=== PATIENT | female | born 1995 | race Caucasian/White ===

== ENCOUNTER 2017-02-21 09:11 | Inpatient (IN) | payer MEDICAID ==
[~2017-02-21] VITALS: Ht 157.5 cm; Wt 93.7 kg
[~2017-02-21 09:11] MED LIST: FLEXERIL10 MG PO; GYNE-LOTRIMIN-745 GM VG; HYDROCODONE-APA1 TA1 PO; K-DUR 2020 MEQ PO; LABETALOL 100M100 MG FT; MAG-OX 400MG T400 MG PO; NOMEDS; PEPCID20 MG OR; PRENATAL PLUS1 TA1 PO; PROVENTIL0.09 MG/A1 IH; RANITIDINE 150150 MG PO; ZITHROMAX Z PA250 MG PO
[2017-02-21 09:28] VITALS: BP 123/71
[2017-02-21 09:48] LABS: URINE BILIRUBIN - DIPSTICK NEGATIVE (NEG); URINE BLOOD TRACE-LYSED (NEG)
[2017-02-21 11:07] LABS: LYMPH # 1.7 K/mm3 (0.7-4.5); LYMPH % 20.4 % (10-50.0)
[2017-02-21 11:08] LABS: HEMOGLOBIN 11.6 g/dL (12.2-16.2)
[2017-02-21 11:23] LABS: ABO BLOOD TYPE O; RH BLOOD TYPE POSITIVE
--- NOTE | 2017-02-21 11:58 | LABOR NOTE ---
Laboring Subjective Subjective Date 02/21/17 Time 1156 Subjective: Pt is having regular contractions Laboring Objective Objective NST: Reactive Contractions: q 2-3 minutes Cervical dilation: 1 Effacement: 50% Station: -3 Membranes are: Spontaneously Ruptured (with clear fluid) Fetus monitoring? Yes Type: External Laboring Assessment Assessment Progressing? No Cephalopelvic disproportion? Yes Problem List: 1. Laboring Plan Plan Anethesia for epidural? No Continue to labor down? Yes Plan for ? No Continue to monitor? Yes Start pushing? No Comment: no progress yet , head high. will continue to observe for now at 1158
--- NOTE | 2017-02-21 16:26 | LABOR NOTE ---
Laboring Subjective Subjective Date 02/21/17 Time 1629 Subjective: Pt is having regular contractions Laboring Objective Objective NST: Reactive Contractions: q 2-3 minutes Cervical dilation: 1 Effacement: 50% Station: -3 Membranes are: Spontaneously Ruptured Fetus monitoring? Yes Type: External Laboring Assessment Assessment Progressing? No Cephalopelvic disproportion? Yes Problem List: 1. Fetopelvic disproportion 2. Delivered by section Laboring Plan Plan Anethesia for epidural? No Continue to labor down? No Plan for ? Yes Continue to monitor? Yes Start pushing? No Comment: She has not made any progression all day. She is had regular contractions on oxytocin and has not change her cervix. The head has not descended. We will go ahead with a . I discussed the risks of surgery with the patient and her family that includes bleeding, infection, injuries to the bowel and bladder. We discussed the rare risk of DVT. All questions were answered and consents were signed. at [id number]
--- NOTE | 2017-02-21 16:26 | LABOR NOTE ---
Laboring Subjective Subjective Date 02/21/17 Time 162 Subjective: Pt is having regular contractions Laboring Objective Objective NST: Reactive Contractions: q 2-3 minutes Cervical dilation: 1 Effacement: 50% Station: -3 Membranes are: Spontaneously Ruptured Fetus monitoring? Yes Type: External Laboring Assessment Assessment Progressing? No Cephalopelvic disproportion? Yes Problem List: 1. Fetopelvic disproportion 2. Delivered by section Laboring Plan Plan Anethesia for epidural? No Continue to labor down? No Plan for ? Yes Continue to monitor? Yes Start pushing? No Comment: She has not made any progression all day. She is had regular contractions on oxytocin and has not change her cervix. The head has not descended. We will go ahead with a . I discussed the risks of surgery with the patient and her family that includes bleeding, infection, injuries to the bowel and bladder. We discussed the rare risk of DVT. All questions were answered and consents were signed. at [phone]
--- NOTE | 2017-02-21 17:43 | Operative Note ---
Procedure/Operative Record Procedure Date of procedure: 02/21/17 Pre-Op Dx: Term , spontaneous rupture of membranes, pelvic disproportion Post-Op Dx: Term , spontaneous rupture of membranes, pelvic disproportion, 3 cm LEFT paratubal cyst Procedure performed: Primary lower segment transverse section, LEFT tubal cystectomy Surgeon: Dr. Sean Priest Disease Management Nurse(s): Dr. Eckert Anesthesia: Clive Feeback EBL (ml): 600 Clinical note: She is a 21-year-old 1 now para 0 who was 39 and 6 weeks gestational age. She ruptured her membranes at home this morning and came in to labor and delivery. She was started on IV oxytocin was having regular contractions all day. She did not progress beyond 1 cm. The baby's head was still very high. After having discussed the risk and benefits we elected to perform a primary lower segment transverse section for fetopelvic disproportion. Operative findings: She delivered a live-born male child at 5:06 PM on the evening of February 21, 2017. The baby had Apgars of 7 at 1 minute and 8 at 5 minutes. PH is currently pending. She also had a 3 cm LEFT paratubal cyst. Operative note: She was taken to the operating room where spinal anesthesia was found be adequate. She was prepped and draped in normal sterile fashion in the supine position with a leftward tilt. A Quiros catheter was in the bladder. A Pfannenstiel skin incision was made with knife then carried through to the underlying layer of fascia with cautery. The fascia was opened in the midline with cautery and extended laterally using Espinoza scissors. [place] clamps were applied to the superior aspect of the fascial incision which was tented up and the underlying rectus muscles dissected off using cautery. The Radha clamps were then applied to the inferior aspect of the fascial incision which in a similar fashion was tented up and the underlying rectus muscles dissected off using cautery. The rectus muscles were then in the midline, the peritoneum identified, and entered sharply with Metzenbaum scissors. This incision was then extended superiorly and inferiorly with cautery. We had good visualization of the bladder inferiorly. The bladder peritoneum was then opened in the midline and extended laterally using Metzenbaum scissors. A bladder flap was created digitally. The lower blade of the Moises was inserted so as to push the bladder out of the way. Transverse incision was made through the uterine muscle to the amnion. This incision was then extended laterally using fingers traction. The amnion was entered sharply with knife. Clear fluid was seen to flow. The infant's head was then delivered atraumatically. This was followed by the anterior shoulder and the rest of the 's body atraumatically. The oropharynx and nasopharynx were bulb suctioned. The was then handed off to Dr. Plasencia who assigned Apgars of 7 at 1 minute and 8 at 5 minutes. We then obtained cord blood as well as cord pH. PH is currently pending Using gentle traction on the cord and countertraction on the fundus I was able to easily deliver the placenta intact. It had a normal three-vessel cord. The uterus was then cleared of clots and debris and exteriorized from the abdominal cavity. A sponge forcep was passed through the cervix to allow drainage. The uterine incision was then closed using running 0 Vicryl suture in a locked fashion. A second layer of the same suture was used to imbricate the first layer. The bladder peritoneum was then closed using running 2-0 Vicryl suture in a locked fashion. I noticed that there was a 3 cm LEFT paratubal cyst. It was just before the fimbriated end. I grasped the cyst and using cautery opened up the tissue overlying the cyst. I then was able to grasp the cyst and teased out from within the tissue. I removed it in its entirety. I then used Spot cautery to obtain excellent hemostasis. The gutters and cul-de-sac were then cleared of clots and debris and the uterus was returned the abdominal cavity. Once again hemostasis was assured. I elected to place a large piece of intercede around the distal end of the LEFT tube. The peritoneum was grasped with Cora clamps and closed using running 2-0 Vicryl suture. The rectus muscles were then reapproximated using running 0 Vicryl suture. The fascia was closed using running #1 Vicryl suture. The subcutaneous tissues were then irrigated with warm water followed by closure Olga's fascia using running 2-0 Monocryl suture. The skin was closed with devaughn. I then cleaned the skin with Hibiclens and Sterile dressings were applied. She tolerated the procedure well and was taken to the recovery room in excellent condition. All sponges minute and needle counts were correct. Estimate a blood loss was approximately 600 mL. Conplications: None Specimens: Products of conception, LEFT paratubal cyst at 1319
[2017-02-21 19:33] LABS: URINE BILIRUBIN - DIPSTICK NEGATIVE (NEG); URINE BLOOD NEGATIVE (NEG)
[2017-02-21 20:05] VITALS: BP 114/69
[2017-02-22 07:04] LABS: HEMOGLOBIN 11.5 g/dL (12.2-16.2)
[2017-02-22 08:25] VITALS: BP 113/56
--- NOTE | 2017-02-22 08:37 | ACUTE CARE PROGRESS NOTE (QUA) ---
Progress Notes Subjective Date 02/22/17 Time 0835 Note She is doing well this morning. She is eating and drinking and ambulating. Her lochia is normal. Her pain is reasonably well-controlled. She is bottlefeeding. Patient/family reports: feeling better, no complaints Objective Findings Last VS-Temp:98.0 B/P:114/69 Pulse:72 Resp:16 SaO2:98 ROOM AIR Last weight lbs:206 oz:10 K.725 Method:Floor Scales Laboratory Tests 02/22/17 0620: Hgb 11.5 L, Hct 35.1 L 02/21/17 1717: Cord Blood pH 7.34 L 02/21/17 1655: Urine Color YELLOW, Urine Appearance CLEAR, Urine pH 5.5, Ur Specific [place] 1.015, Urine Protein NEGATIVE, Urine Ketones NEGATIVE, Urine Blood NEGATIVE, Urine Nitrate NEGATIVE, Urine Bilirubin NEGATIVE, Urine Urobilinogen 0.2, Ur Leukocyte Esterase NEGATIVE, Urine WBC OCC, Urine Bacteria 1+, Urine Mucus 1+, Urine Glucose NEGATIVE 02/21/17 1038: MCH 27.3 02/21/17 1038: WBC 8.5, RBC 4.28, Hgb 11.6 L, Hct 35.7 L, MCV 83.4, RDW 13.0, Plt Count 267, MPV 6.9 L, Gran % 72.1, Gran # 6.1, Lymphocytes % 20.4, Monocytes % 5.9, Eosinophils % 1.3, Basophils % 0.2, Lymphocytes # 1.7, Monocytes # 0.5, Eosinophils # 0.1, Basophils # 0.0, PUBS MCHC 32.7, Antibody Screen NEGATIVE, Miscellaneous Test POSITIVE 02/21/17 0930: Membrane Rupture POSITIVE- RUPTURED 02/21/17 0918: Urine Color YELLOW, Urine Appearance CLOUDY, Urine pH 6.0, Ur Specific [place] 1.025, Urine Protein NEGATIVE, Urine Ketones NEGATIVE, Urine Blood TRACE-LYSED, Urine Nitrate NEGATIVE, Urine Bilirubin NEGATIVE, Urine Urobilinogen 0.2, Ur Leukocyte Esterase TRACE H, Urine WBC 3-5, Ur Squamous Epith Cells 5-10, Urine Bacteria 2+, Urine Mucus 2+, Urine Glucose NEGATIVE Microbiology 02/21 918 URINE CC: Urine Culture - RECD Exam General appearance: normal appearance, alert, awake, no acute distress Reviewed: vital signs, lab results Assessment/Plan Problem List 1. Fetopelvic disproportion 2. Delivered by section Patient condition Improving, Stable Plan: continue current care, initiate discharge plan This inpt stay is expected to cross 2 MNs from start of care Yes Comments: She is doing very well and we will plan to send her home in 48 hours. at 0836
[2017-02-23 08:29] VITALS: BP 113/56
--- NOTE | 2017-02-23 09:52 | ACUTE CARE PROGRESS NOTE (QUA) ---
Progress Notes Subjective Date 02/23/17 Time 0951 Note She is doing very well. She is eating and drinking and ambulating. She is bottlefeeding. Her lochia is normal. Her pain is well-controlled. Patient/family reports: feeling worse, no complaints Objective Findings Last VS-Temp:97.9 B/P:113/56 Pulse:65 Resp:18 SaO2:98 ROOM AIR Last weight lbs:206 oz:10 K.725 Method:Floor Scales Exam General appearance: normal appearance, alert, awake, no acute distress Reviewed: vital signs, lab results Assessment/Plan Problem List 1. Fetopelvic disproportion 2. Delivered by section Patient condition Improving, Stable Plan: continue current care This inpt stay is expected to cross 2 MNs from start of care Yes Comments: She is doing very well and we'll plan to send her home tomorrow. at 0912
[2017-02-23 19:20] VITALS: BP 130/65
--- NOTE | 2017-02-24 10:33 | ACUTE CARE PROGRESS NOTE (QUA) ---
Progress Notes Subjective Date 02/24/17 Time 1031 Note She is doing very well this morning. She is eating and drinking and ambulating. She is feeding. Her lochia is normal. Her pain is well-controlled. Patient/family reports: feeling better, no complaints Objective Findings Last VS-Temp:97.9 B/P:130/65 Pulse:91 Resp:18 SaO2:98 ROOM AIR Last weight lbs:206 oz:10 K.725 Method:Floor Scales Exam General appearance: normal appearance, alert, awake, no acute distress Reviewed: vital signs, lab results Assessment/Plan Problem List 1. Fetopelvic disproportion 2. Delivered by section Patient condition Improving, Stable Plan: continue current care, initiate discharge plan This inpt stay is expected to cross 2 MNs from start of care Yes Comments: She is doing very well we'll plan to send her home today. at 1032
--- NOTE | 2017-02-24 10:35 | Discharge Summary ---
Discharge Summary Admission date: 02/21/17 Discharge date: 02/24/17 Discharge diagnoses: Term , spontaneous rupture of membranes, pelvic disproportion Clinical note: She is a 21-year-old 19 now para 1 who was 39 and 6 weeks gestational age. She came in with ruptured membranes. Course in hospital: She really failed to progress beyond 1 cm. The baby's head was still quite high. This was despite having regular contractions all day long. As result of that we elected to perform a primary lower segment transverse section. She delivered a live-born male child at at 5:06 PM on the evening of February 21, 2017. The baby weighed 7 lbs. 8 oz. was 21 inches long and had Apgars of 7 at 1 minute and 8 at 5 minutes. She has done well postoperatively and has remained afebrile throughout her hospitalization. She is eating and drinking and ambulating. She is bottlefeeding. Her lochia is normal. She has O positive blood, she is rubella immune and was group B streptococcus negative. Laboratory Tests 02/22/17 0620: Hgb 11.5 L, Hct 35.1 L 02/21/17 1717: Cord Blood pH 7.34 L 02/21/17 1655: Urine Color YELLOW, Urine Appearance CLEAR, Urine pH 5.5, Ur Specific [place] 1.015, Urine Protein NEGATIVE, Urine Ketones NEGATIVE, Urine Blood NEGATIVE, Urine Nitrate NEGATIVE, Urine Bilirubin NEGATIVE, Urine Urobilinogen 0.2, Ur Leukocyte Esterase NEGATIVE, Urine WBC OCC, Urine Bacteria 1+, Urine Mucus 1+, Urine Glucose NEGATIVE 02/21/17 1038: MCH 27.3 02/21/17 1038: WBC 8.5, RBC 4.28, Hgb 11.6 L, Hct 35.7 L, MCV 83.4, RDW 13.0, Plt Count 267, MPV 6.9 L, Gran % 72.1, Gran # 6.1, Lymphocytes % 20.4, Monocytes % 5.9, Eosinophils % 1.3, Basophils % 0.2, Lymphocytes # 1.7, Monocytes # 0.5, Eosinophils # 0.1, Basophils # 0.0, PUBS MCHC 32.7, Antibody Screen NEGATIVE, Miscellaneous Test POSITIVE Plans for ongoing care: She is discharged home to follow-up with me in approximately 2 weeks' time. Discharge medications She'll continue with her vitamins and iron. She will take a stool softener. We have given her a prescription for a nicotine patch. She was given up her prescription for Percocet 5/325, 30 tablets. DC/follow-up instructions She was given the usual instructions with respect to limiting her activity, driving and sexual activity. She was given instructions with respect to wound care. Condition at discharge Stable and improved at 3987
[2017-02-24] MEDS ORDERED: PERCOCET 5/3251 EACH PO (10:37)
[2017-02-24] MEDS ORDERED: NICOTINE T21 MG/24 H TD (10:37)
[2017-02-24 11:05] VITALS: BP 126/73
[2017-02-24 11:08] VITALS: BP 126/73
== END 2017-02-24 11:05 | disposition home or self-care (01) | DRG 766 ==
LOC: OBOUT 09:11 → OB 09:14 → OBOUT 10:07 → OB 10:12
PROVIDERS: Nurse Practitioner Obstetrics & Gynecology
PROC: 0UB60ZZ Excision of Left Fallopian Tube, Open Approach (ICD-10-PCS; 2017-02-21)
PROC: 10D00Z1 Extraction of Products of Conception, Low, Open Approach (ICD-10-PCS; principal; 2017-02-21 16:30)
DX: O64.8XX0 Obstructed labor due to other malposition and malpresentation, not applicable or unspecified (principal); N83.8 Other noninflammatory disorders of ovary, fallopian tube and broad ligament; Z3A.39 39 weeks gestation of pregnancy; Z37.0 Single live birth
CPT/HCPCS: J2405

== ENCOUNTER → 2017-10-14 | Emergency (ER) | payer MEDICAID ==
[~2017-10-14] VITALS: Ht 157.5 cm; Wt 79.4 kg
[~2017-10-14] MED LIST changes: +DICLOFENAC 50MG50 MG PO; +NICOTINE T21 MG/24 H TD; +PERCOCET 5/3251 EACH PO; +ROBAXIN500 M1 PO
--- NOTE | 2017-10-14 11:00 | Emergency Room Report ---
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 Clinical Suspician of Infection? Mental Status: Sepsis Risk: Have you (or family members/close friends) recently traveled outside the [place]? If Yes, where/when: Have you had exposure to infectious disease within the past month? TB? Other? Specify: Source patient, RN notes reviewed Exam Limitations no limitations Comment Pt comes to the ED with complaints of waking up around 4AM with severe sharp pain in both sides of low back with nausea and vomiting but no fever and no diarrhea. She has had Lithotripsy in the past for Kidney stones. She has also had a C section and is not on BC. Cardiac Chest Pain Chest pain indicative of cardiac No ALLERGIES Coded Allergies: penicillin G (-- 02/21/17) amoxicillin (Mild, NA-NAUSEA/VOMITING 02/21/17) History Medical History General CAD? No Angina: No [place]: No Hypertension? No Hyperlipidemia? No CHF? No DVT? No PE? No COPD? No Asthma? No Anemia? No GERD? No Gastric ulcers? No GI Bleed? No Hernia? No Thyroid Problems? No Hypothyroidism? No CVA? No Seizures? No Diabetes? No Renal Insuffiency? No End Stage Renal Disease? No UTI? No Stones? Yes BPH? No GB Disease: No Nephritic Syndrome? No Asplenia? No Hepatitis? No Sickle Cell Disease? No Arthritis? No Migraines? No Cataracts? No Glaucoma? No MRSA? No HIV? No TB? No Anxiety? No Depression? No Cancer? No Immunization Hx DT/Tetanus 1-4 YRS Flu Refused Pneumonia Refuses Surgical Hx Previous Surgery?Y LITHOTRIPSY Social History Smoking Hx Packs/day < 1 Pack Alcohol Alcohol: No Review of Systems All Other Systems Reviewed and Negative Constitutional see HPI Gastrointestinal see HPI Musculoskeletal see HPI Physical Exam Vital Signs Vital Signs Date Time Temp Pulse Resp B/P Pulse O2 O2 Flow FiO2 Ox Delivery Rate 10/14 1128 16 10/14 1101 98.4 74 16 131/62 98 General Appearance normal appearance, WD/WN, moderate distress Respiratory Status No: respiratory distress. Lung Sounds bilateral: normal breath sounds. Cardiovascular normal exam, regular rate/rhythm Neurologic alert, transportation aid II-XII nml as tested Comments tender in both flanks and in suprapubic areas but no rebound and no guarding and BS are good Medical Decision Making LABS/Meds/Orders Pt receiving controlled substance in ED? No Results/Orders Laboratory Tests 10/14/17 1125: Sodium 142, Potassium 4.1, Chloride 108 H, Carbon Dioxide 27, BUN 11, Creatinine 0.7, Estimated Creat Clear 158, Estimated GFR (MDRD) 105, Glucose 87, Calcium 9.0, Total Bilirubin 0.2, AST 15, ALT 21, Alkaline Phosphatase 110, Total Protein 7.2, Albumin 3.5, Globulin 3.7 H, Albumin/Globulin Ratio 0.9 L, Amylase 38, Lipase 88, WBC 9.0, RBC 5.03, Hgb 13.4, Hct 41.1, MCV 81.7 L, RDW 12.7, Plt Count 251, MPV 7.9, Gran % 70.8, Gran # 6.4, Lymphocytes % 20.1, Monocytes % 5.8, Eosinophils % 3.1, Basophils % 0.3, Lymphocytes # 1.8, Monocytes # 0.5, Eosinophils # 0.3, Basophils # 0.0, PUBS MCHC 32.5, MCH 26.5 L 10/14/17 1055: Urine Color YELLOW, Urine Appearance CLEAR, Urine pH 7.0, Ur Specific [place] 1.025, Urine Protein NEGATIVE, Urine Ketones NEGATIVE, Urine Blood TRACE-INTACT, Urine Nitrate NEGATIVE, Urine Bilirubin NEGATIVE, Urine Urobilinogen 0.2, Ur Leukocyte Esterase TRACE H, Urine WBC OCC, Ur Squamous Epith Cells 10-20, Urine Bacteria 2+, Urine Mucus 2+, Urine Glucose NEGATIVE Current Medication Orders Sig/Bairon Start time Last Medication Dose Route Stop Time Status Admin Ketorolac 30 MG ONCE ONE 10/14 1130 DC 10/14 Tromethamine IV 10/14 1131 1128 Ondansetron HCl 4 MG ONCE ONE 10/14 1130 DC 10/14 IV 10/14 1131 1128 Sodium Chloride 1,000 ML .Q1H1M 10/14 1130 DC 10/14 IV 10/14 1230 1127 Sodium Chloride 10 ML PRN PRN 10/14 1130 AC IV 10/15 1127 Sodium Chloride 10 ML PRN PRN 10/14 1130 AC IV 10/15 1128 Sodium Chloride 1,000 ML .STK-MED ONE 10/14 1125 DC IV Ketorolac 0 .STK-MED ONE 10/14 1124 DC Tromethamine .ROUTE Ondansetron HCl 0 .STK-MED ONE 10/14 1124 DC .ROUTE Orders Procedure Date/time Status DIET-NOTHING BY MOUTH 10/14 D Active IV SALINE LOCK 10/[address] ABD/PELVIS REQ 10/14 112 Complete LIPASE 10/14 1125 Complete CBC WITH AUTO DIFF 10/14 112 Complete CHEM 12 PROFILE 10/14 112 Complete AMYLASE 10/14 112 Complete URINALYSIS/COMPLETE 10/14 1103 Complete URINE 10/14 1103 Complete CULTURE, URINE 10/14 1055 Active XRAY/CT/US XRAY/CT/US CT abdomen, pelvis CT interpretation by discussed w/radiologist Time results known: 1234 CT Results normal/NAD Departure Departure Time of Disposition 1231 Disposition DC Home or Self Care(routine) Clinical Impression Primary Impression: Bilateral flank pain Secondary Impressions: Abdominal pain Qualifiers: Abdominal location: lower abdomen, unspecified Qualified Code: R10.30 - Lower abdominal pain, unspecified Condition STABLE Patient Instructions DI for Abdominal Pain-Adult, DI for Low Back Pain, Low Back Pain Additional Instructions Use medicines as directed and followup with PCP if symptoms persist to look for other causes of pain Discharge Counseling Counseled pt/family regarding diagnosis, test results, medications/RX, home care, follow up needs Prescriptions Current Visit Scripts DICLOFENAC SODIUM (Diclofenac 50MG) 50 MG PO BID #60 TAB Methocarbamol (Robaxin) 500 MG PO BID #60 TAB ED Critical Care Critical Care No If Critical Care minutes are documented, the time involved in the performance of seperately reportable procedures was not counted toward critical care time documented. I directly delivered medical care to this critically ill and/or injured patient. Timely evaluation and treatment was necessary to address the significant organ system(s) dysfunction present in this patient. at 1234
[2017-10-14 11:08] LABS: URINE BILIRUBIN - DIPSTICK NEGATIVE (NEG); URINE BLOOD TRACE-INTACT (NEG)
--- OUTSIDE RECORDS SUMMARY | 2017-10-14 11:31 | External Medical Summary Rpt | CCD ---
Author Author [employer] Organization [employer] Address Unknown Phone Unavailable Purpose Continuity of Care Document - through 2016
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
--- OUTSIDE RECORDS SUMMARY | 2017-10-14 11:31 | External Medical Summary Rpt | CCD ---
Author Author , LENA FUENTESMEREDITH Address Unknown Phone [email or web address] Immunization Name Date Rout CVX Reac Dose Comm Prov Is Faci e tion ent ider Refu lity Give sed n Tdap 02-2 115 0.50 Hist BERENICE No H201 , 2-20 mL oric DIXIE Adso 17 al R rbed Info MAXIMO rmat SON ion - Sour ce Unsp ecif ied Tdap 08-0 115 999 Hist H201 No H201 , 9-20 oric Adso 06 al rbed Info rmat ion - Sour ce Unsp ecif ied Vari 08-0 21 999 Hist H201 No H201 cell 9-20 oric a 02 al Info rmat ion - Sour ce Unsp ecif ied Nash 11-1 2 999 Hist H201 No H201 o-OP 7-19 oric V 99 al Info rmat ion - Sour ce Unsp ecif ied DTaP 11-1 107 999 Hist H201 No H201 , UF 7-19 oric 99 al Info rmat ion - Sour ce Unsp ecif ied MMR 11-1 3 999 Hist H201 No H201 7-19 oric 99 al Info rmat ion - Sour ce Unsp ecif ied MMR 12-2 3 999 Hist H201 No H201 0-19 oric 96 al Info rmat ion - Sour ce Unsp ecif ied DTP- 10-0 22 999 Hist H201 No H201 Hib 1-19 oric 96 al Info rmat ion - Sour ce Unsp ecif ied Hep 10-0 8 999 Hist H201 No H201 B, 1-19 oric ped/ 96 al adol Info rmat ion - Sour ce Unsp ecif ied DTP- 03-2 22 999 Hist H201 No H201 Hib 5-19 oric 96 al Info rmat ion - Sour ce Unsp ecif ied [place] 03-2 2 999 Hist H201 No H201 o-OP 5-19 oric V 96 al Info rmat ion - Sour ce Unsp ecif ied [place] 01-1 Intr 2 999 Hist H201 No H201 o-OP 8-19 amus oric V 96 cula al r Info rmat ion - Sour ce Unsp ecif ied
--- OUTSIDE RECORDS SUMMARY | 2017-10-14 11:31 | External Medical Summary Rpt | CCD ---
Author Author , LENA Organization LENA Address Unknown Phone [email or web address] Purpose Continuity of Care Document - 10-14-2017 [...]
--- OUTSIDE RECORDS SUMMARY | 2017-10-14 11:31 | External Medical Summary Rpt | CCD ---
Author Author , LENA FUENTESMEREDITH Address Unknown Phone [email or web address] Immunization Name Date Rout CVX Reac Dose [...]
[2017-10-14 11:35] LABS: LYMPH # 1.8 K/mm3 (0.7-4.5); LYMPH % 20.1 % (10-50.0)
[2017-10-14 11:48] LABS: HEMOGLOBIN 13.4 g/dL (12.2-16.2)
--- NOTE | 2017-10-14 12:23 | RADIOLOGY REPORT PS360 ---
CT ABD PELVIS W/O CONTRAST CLINICAL INDICATION: Bilateral lower abdominal pain and back pain/flank pain ABDOMINAL AND LOW BACK PAIN ORDERING PHYSICIAN: Nayeli Juarez MD PATIENT AGE: 22 years COMPARISON: 06/02/2016 TECHNIQUE: Axial images obtained with sagittal and coronal reformats. PROCEDURE: Oral Contrast: None IV Contrast: None . FINDINGS: Lower thorax: No acute finding ABDOMEN: Liver: No masses or biliary dilatation. Gallbladder: Nondistended. No radio opaque stones. Pancreas: No masses or peripancreatic fluid collections. Spleen: Borderline splenomegaly at 14 cm Adrenals: Unremarkable Kidneys/ureters: There are nonobstructing punctate bilateral renal calculi 2 mm in the upper pole the right kidney and upper pole left kidney. No hydronephrosis. No ureteral calculi or ureteral dilatation. Stomach bowel: Nondistended. No obvious mass or thickening. Appendix: There is an appendicolith present. No evidence of appendicitis. PELVIS: Reproductive: Unremarkable Bladder: Nondistended. No obvious stones or masses. ABDOMEN & PELVIS: Peritoneum: No abnormal fluid collections. No obvious inflammatory changes. No free air. Lymph nodes: No enlarged lymph nodes apparent. Vasculature: No evidence of abdominal aortic aneurysm. No retroperitoneal hemorrhage evident. Bones: No acute fracture IMPRESSION: 1. No acute intra-abdominal or pelvic pathology 2. Punctate bilateral nonobstructing renal calculi. 3. Mild splenomegaly
[2017-10-14 12:50] VITALS: BP 126/86
== END ==
LOC: ER 10:53
PROVIDERS: General Practice
DX: R10.30 Lower abdominal pain, unspecified (principal); Z88.0 Allergy status to penicillin
CPT/HCPCS: J2405